=== PATIENT | female | born 1980 | race Caucasian/White ===

== ENCOUNTER → 2016-10-07 | Outpatient (CLI) | payer OTHER ==
[~2016-10-07] MED LIST: BUTALB-APAP-CA1 EACH PO; IBUPROFEN 600600 M1; MOTION RELIEF25 MG PO; NOHOMEMEDICATIONS; NORCO 5-325 TA1 EACH PO; SENOKOT-S1 TA1 PO; ZOFRAN ODT4 MG PO
== END ==
LOC: RAD 09:39
DX: M47.22 Other spondylosis with radiculopathy, cervical region (principal)

== ENCOUNTER → 2016-12-14 | Outpatient (CLI) | payer OTHER ==
[~2016-12-14] VITALS: Ht 167.6 cm; Wt 70.3 kg
[~2016-12-14] MED LIST changes: +ADVIL PM CAPLE1 EACH PO
--- NOTE | ~2016-12-14 | HPC ---
[facility] [address] [place] [address] PAIN MANAGEMENT CONSULTATION Name: EYADAPOORVA Room #: REG FELICIA HopkinsRobbieLizbethRobbie#: [id number] Admission: 12/14/16 Attend Phys: Kalyani Jarquin MD Discharge: Date of : 76 Report #: [id number] THIS REPORT FOR: //name// CC: Kevin Cuellar DATE OF SERVICE: 12/14/2016 CHIEF COMPLAINT: Severe pain in the neck down the left arm after a fall. FOLLOWUP HISTORY: The patient is a 36-year-old female who has been seen in the Emergency Room. She is status post fall. She states that she has been experiencing pain radiating down into her left arm and shoulder and involving her hand. She has had some numbness and tingling involving her left hand. It involves her left index finger and thumb. She states that she was walking down stairs in heels. She fell. She hit her hand on the rail and with her left shoulder and landed on it. She has noticed increased pain and discomfort since that time. She rates her pain as a 09/19. She does experience some shock like pain as well. She denied any hand trauma. Denies any loss of consciousness. Pain continues to worsen as the day progresses. She is having difficulty sleeping because of the pain. It wakes her up. She has tried an ice pack, cold pack and pain medications, but continues to find the pain is continuous, sharp, aching and shooting. She denies any surgery to her neck. The patient has undergone physical therapy and swimming. She has tried nonsteroidal anti-inflammatory medications. ALLERGIES: ACETAMINOPHEN, PROPOXYPHENE. MEDICATIONS: Advil caplets 2 p.o. at bedtime, hydrocodone 5/325 one p.o. p.r.n. severe pain. PAST MEDICAL HISTORY: Generally unremarkable. PAST SURGICAL HISTORY: and bladder surgery. REVIEW OF SYSTEMS: Questionnaire indicates generally good health, fatigue, headaches, sore throat, varicose veins, numbness and tingling sensation in the left arm as described above, depression. LABORATORY DATA: MRI of the cervical spine dated 11/22/2016 reveals C7/C6 prominent left posterior lateral disk herniation, which contributes to a moderate left-sided central canal stenosis and moderate to severe left neural foraminal stenosis. PHYSICAL EXAMINATION: Blood pressure 121/85, pulse 71, respiratory rate 16, [facility] [address] [place] [address] PAIN MANAGEMENT CONSULTATION Name: APOORVA CASTANO [facility] [id number] Admission: 12/14/16 Attend Phys: Kalyani Jarquin MD Discharge: Date of : 76 Report #: [id number] room air saturation 98, height 5 feet 6 inches, weight 155 pounds, BMI is 25. The patient has pain and discomfort in her neck, left arm with pain and discomfort, which is radiating down into her left forearm involving her index finger and thumb. She notes some decreased sensation to cold and pinprick in these areas. Notes some weakness in her arm. She has some discomfort in the shoulder in the area of the scapula. IMPRESSION: Cervical radiculopathy, status post fall with MRI showing a bulging disk at the C6-C7 area with numbness and tingling in the affected area. RECOMMENDATIONS: We discussed treatment options with the patient. Risks and benefits of an epidural steroid injection in the cervical area were discussed. Possible complications of the procedure were discussed as well. The patient would like to proceed with an epidural steroid injection. We will petition her insurance company at which time after precertification she will return and undergo a series of cervical epidural steroid injections to help decrease the pain and discomfort which she is experiencing. We would like to thank you for letting us participate in her care. We hope she continues to improve. <ELECTRONICALLY SIGNED> By: Kalyani Jarquin MD 12/22/16 0822 [id number] Kalyani Jarquin MD /[facility]
[2016-12-14 13:10] VITALS: BP 121/85
== END | disposition home or self-care (01) ==
LOC: PAIN 12-09 11:49
DX: M54.12 Radiculopathy, cervical region (principal); Z98.890 Other specified postprocedural states; Z88.8 Allergy status to other drugs, medicaments and biological substances; Z79.1 Long term (current) use of non-steroidal anti-inflammatories (NSAID)

== ENCOUNTER → 2016-12-23 | Outpatient (CLI) | payer OTHER ==
[~2016-12-23] VITALS: Ht 167.6 cm; Wt 76.4 kg
[~2016-12-23] MED LIST changes: +ALEVE PM CAPLE1 EACH PO; +AMITRIPTYLINE H10 M3 PO; +IBUPROFEN 800800 M1 PO; +IRON159 MG; +PRENATAL
--- NOTE | ~2016-12-23 | HPC ---
[facility] [address] [facility] [address] PAIN MANAGEMENT CONSULTATION Name: EYADAPOORVA Roberts Room #: REG FELICIA GarcíaRobbie#: [id number] Admission: 12/23/16 Attend Phys: Kalyani Jarquin MD Discharge: Date of : 76 Report #: [id number] THIS REPORT FOR: //name// CC: Kevin Cuellar DATE OF SERVICE: 12/23/2016 FOLLOWUP COMPLAINT: Here for an injection. FOLLOWUP HISTORY: The patient is a 36-year-old female who has been seen in the Pain Clinic because of pain and discomfort with pain radiating down into her left arm with pins and needle sensation down into her fingers. She returns today for treatment. She continues to have pain involving the neck, left arm and this has been problematic since September of this year. She notes that the pain worsens as the day progresses. Notes that it improves somewhat with use of ice and heat at times. Medications have been somewhat helpful. She rates her pain as 5/10 at this juncture and would like to proceed with an epidural steroid injection, which we have described and discussed in the past visit. PHYSICAL EXAMINATION: Blood pressure is 132/68, pulse 72, respiratory rate 16, room air saturation is 99%. Height 5 feet 6 inches, weight 168 pounds, BMI is 27. The patient has numbness and tingling in the left arm as described in the HPI. She rates her pain as a 5/10. She continues to have pain and discomfort radiating down to the left arm. IMPRESSION: Cervical radiculopathy, status post fall with MRI showing a bulging disk at C6-C7 with numbness and tingling in the affected area. RECOMMENDATIONS: We discussed treatment options with the patient. Risks and benefits were again reviewed. Possible complications, which include but are not limited to infection, increased muscle soreness, bleeding, headache, nerve damage, muscle pain were discussed and the patient elects to proceed. PROCEDURE NOTE: The patient was placed in the prone position. Fluoroscopy was used to identify the C7-T1 interspace. This area had been sterilely prepped with Betadine and infiltrated with 0.25% bupivacaine. A total of 120 mg triamcinolone with 2 mL of 0.25% bupivacaine was injected. The patient's pain decreased to 0 at the time of return to the recovery room. A total of 9 seconds fluoroscopy time was used. She will follow up in the future as needed. [address] [address] PAIN MANAGEMENT CONSULTATION Name: APOORVA CASTANO Room #: REG FELICIA GarcíaoRbbie#: [id number] Admission: 12/23/16 Attend Phys: Kalyani Jarquin MD Discharge: Date of : 76 Report #: [id number] We would like to thank you for letting us participate in her care. We hope she continues to improve. By: [id number] MD SERGEY Simpson
[2016-12-23 10:42] VITALS: BP 132/68
== END | disposition home or self-care (01) ==
LOC: PAIN 10:25
DX: M54.12 Radiculopathy, cervical region (principal)

== ENCOUNTER → 2020-03-27 | Outpatient (CLI) | payer BC | LOC: LAB 09:52 | PROVIDERS: ATTEND Family Medicine | DX: R06.02 Shortness of breath (principal); R05 Cough; R50.9 Fever, unspecified; J02.9 Acute pharyngitis, unspecified; Z20.822 Contact with and (suspected) exposure to COVID-19 ==